=== PATIENT | female | born 2000 | race Native Hawaiian/Other Pacific Islander ===

== ENCOUNTER 2020-02-29 08:30 | Emergency (ER) | payer BC ==
[~2020-02-29] VITALS: Ht 177.8 cm; Wt 122.0 kg
[2020-02-29 08:38] VITALS: TEMP 98.8
[2020-02-29 09:14] LABS: PLATELET COUNT 258 K/uL (152-353)
[2020-02-29 10:53] VITALS: BP 126/73
== END 2020-02-29 10:54 | disposition home or self-care (01) ==
LOC: ED 08:30
PROVIDERS: Emergency Medicine Emergency Medical Services
DX: L03.113 Cellulitis of right upper limb (principal)
CPT/HCPCS: 84550; 85027; 85610; 96365; 99284; J0696